=== PATIENT | male | born 1980 | race Caucasian/White ===

== ENCOUNTER 2016-10-08 09:16 | Emergency (ER) | payer SELFPAY ==
[~2016-10-08] VITALS: Ht 193 cm; Wt 85.7 kg
[~2016-10-08 09:16] MED LIST: DOXY100T OR; IBUP800T23 PO; Z.0.NO CURRENT MEDS
[2016-10-08 09:26] VITALS: BP 125/81; PULSE 65; RESP 16; TEMP 98.9; O2SAT 97
[2016-10-08] MEDS ORDERED: LIDOCAINE HCL 2% 50 ML VIAL INFIL ONE (09:45)
[2016-10-08] MEDS ORDERED: METH40TA PO (09:52)
[2016-10-08] MEDS ORDERED: BACT800T5 PO (10:15)
[2016-10-08] MEDS ORDERED: CEPH-460 PO (10:15)
--- NOTE | 2016-10-08 10:18 | PD ---
HPI Chief Complaint: Skin Problem Time Seen by Provider: 09:35 Travel History International Travel<30 days: No Contact w/Intl Traveler<30days: No Traveled to known affect area: No History of Present Illness HPI Patient is a 35 year old male who comes in complaining of a painful swelling to his left arm. He says he has noticed the swelling for the past month, but his usually been able to get to go and it's own. He says for the past 3 or 4 days the swelling has increased and not gone away. He complains of pain to the area. He denies any fever or chills. He has injected himself in that area before. He says he is currently not using any IV drugs and is taking methadone. He denies any chest pain or shortness of breath. PFSH Past Medical History Depression: Yes Diminished Hearing: No Tetanus Vaccination: > 5 Years Influenza Vaccination: No Past Surgical History Surgical History: No Previous Surgery Social History Alcohol Use: Yes ("for years") Tobacco Use: Yes (1 PPD) Substance Use: Yes (CLAIMS HAS USED EVERY TYPE OF SUBSTANCE) Allergies-Medications (Allergen,Severity, Reaction): Coded Allergies: Erythromycin (Verified Allergy, Severe, Nausea/Vomiting, 10/08/16) Azithromycin (Verified Allergy, Mild, 10/08/16) Reported Meds & Prescriptions Reported Meds & Active Scripts Active Bactrim DS (Sulfamethoxazole-Trimethoprim) 800-160 Mg Tab 1 Tab PO BID Keflex (Cephalexin) 500 Mg Cap 500 Mg PO Q6H 7 Days Reported Methadone (Methadone HCl) 40 Mg Tab 40 Mg PO DAILY Review of Systems General / Constitutional: No: Fever, Chills HENT: No: Headaches, Lightheadedness Cardiovascular: No: Chest Pain or Discomfort Respiratory: No: Shortness of Breath Gastrointestinal: No: Nausea, Vomiting Skin: Positive Lesions Neurologic: No: Weakness, Dizziness Physical Exam Narrative GENERAL: Awake and alert in no acute distress. SKIN: Warm and dry. 2 cm area of fluctuance on the left forearm, just distal to the elbow. There is surrounding erythema and induration. HEAD: Atraumatic. Normocephalic. EYES: Pupils equal and round. No scleral icterus. NECK: Trachea midline. No JVD. CARDIOVASCULAR: Regular rate and rhythm. No murmur appreciated. RESPIRATORY: No accessory muscle use. Clear to auscultation. Breath sounds equal bilaterally. MUSCULOSKELETAL: No obvious deformities. No clubbing. No cyanosis. No edema. NEUROLOGICAL: Awake and alert. No obvious cranial nerve deficits. Motor grossly within normal limits. Normal speech. Data Data Last Documented VS Vital Signs Date Time Temp Pulse Resp B/P Pulse Ox O2 Delivery O2 Flow Rate FiO2 10/08/16 09:26 98.9 65 16 125/81 97 Orders Lidocaine 2% Inj (Xylocaine 2% Inj) (10/08/16 09:45) [facility] Medical Decision Making Medical Screen Exam Complete: Yes Emergency Medical Condition: Yes Medical Record Reviewed: Yes Differential Diagnosis Abscess versus cellulitis versus folliculitis Narrative Course Patient is a 35-year-old male comes in complaining of pain and swelling to his left arm. Exam shows an area of fluctuance with surrounding erythema and induration. Patient has no systemic symptoms at this time. Abscess drained with expression of pus. Wound bandaged. Patient will be discharged with prescriptions for Keflex and Bactrim. Advised to return if he has any increased swelling, pain, fever. Advised to return to the ED as needed for any worsening symptoms. Procedures Procedure Narrative Verbal consent obtained for procedure. Abscess infiltrated with 10 ML's of 2% lidocaine. Small incision made the top of the abscess with expression of about 2 ML's of pustular material. 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 Clean bandage applied. Diagnosis Primary Impression: Abscess Patient Instructions: Abscess (ED), General Instructions Additional Instructions: Make sure to keep the wound clean and dry. Take all of your antibiotics. Return to the ED for worsening pain, swelling, fevers. You can take Tylenol or Ibuprofen for pain. Scripts Sulfamethoxazole-Trimethoprim (Bactrim DS)800-160 Mg Tab1 Tab PO BID #14 TAB Ref 0 Prov:Sherrie Payton MD 10/08/16 Cephalexin (Keflex)500 Mg [id number] Mg PO Q6H 7 Days Ref 0 Prov:Sherrie Payton MD 10/08/16 Disposition: 01 DISCHARGE HOME Condition: Stable Sherrie Payton MD Oct 08, 2016 10:18
== END 2016-10-08 10:24 | disposition home or self-care (01) ==
LOC: PHED 09:16
DX: L02.414 Cutaneous abscess of left upper limb (principal); F17.210 Nicotine dependence, cigarettes, uncomplicated; F19.10 Other psychoactive substance abuse, uncomplicated
CPT/HCPCS: 10060

== ENCOUNTER 2017-03-19 13:34 | Emergency (ER) | payer SELFPAY ==
[~2017-03-19] VITALS: Ht 193 cm; Wt 79.5 kg
[2017-03-19 13:34] VITALS: BP 137/79; PULSE 77; RESP 16; TEMP 97.5; O2SAT 98
[~2017-03-19 13:34] MED LIST changes: +BACT800T5 PO; +CEPH-460 PO; -DOXY100T OR; -IBUP800T23 PO; +METH40TA PO; -Z.0.NO CURRENT MEDS
--- NOTE | 2017-03-19 13:54 | PD ---
HPI Chief Complaint: altered mental status Time Seen by Provider: 13:38 Travel History International Travel<30 days: No Contact w/Intl Traveler<30days: No Traveled to known affect area: No History of Present Illness HPI This 36-year-old male is brought by paramedics. His mother called the paramedics because he was unresponsive. Patient has a history of drug abuse. He admits that he uses drugs today. Paramedics report that he was not breathing well and was unresponsive. He was given 0.4 of Narcan and is now fully awake. He says this was an accidental overdose. He has been trying to get into detox and went to [facility] yesterday. [facility] Past Medical History Depression: Yes Diminished Hearing: No Social History Alcohol Use: Yes ("for years") Tobacco Use: Yes (1 PPD) Substance Use: Yes (CLAIMS HAS USED EVERY TYPE OF SUBSTANCE) Allergies-Medications (Allergen,Severity, Reaction): Coded Allergies: Erythromycin (Verified Allergy, Severe, Nausea/Vomiting, 03/19/17) Azithromycin (Verified Allergy, Mild, 03/19/17) Reported Meds & Prescriptions Reported Meds & Active Scripts Active Review of Systems General / Constitutional: No: Fever, Chills Eyes: No: Diploplia, Blurred Vision HENT: No: Headaches, Vertigo Cardiovascular: No: Chest Pain or Discomfort, Palpitations, Diaphoresis Respiratory: No: Cough, Shortness of Breath Gastrointestinal: No: Vomiting Genitourinary: No: Urgency, Frequency Musculoskeletal: No: Myalgias Skin: No Rash Endocrine: No: Heat Intolerance, Cold Intolerance Hematologic/Lymphatic: No: Easy Bruising Physical Exam Narrative GENERAL: Well-developed male SKIN: Focused skin assessment warm/dry. HEAD: Atraumatic. Normocephalic. EYES: Pupils equal and round. No scleral icterus. No injection or drainage. ENT: No nasal bleeding or discharge. Mucous membranes pink and moist. NECK: Trachea midline. No JVD. CARDIOVASCULAR: Regular rate and rhythm. No murmur appreciated. RESPIRATORY: No accessory muscle use. Clear to auscultation. Breath sounds equal bilaterally. GASTROINTESTINAL: Abdomen soft, non-tender, nondistended. Hepatic and splenic margins not palpable. MUSCULOSKELETAL: No obvious deformities. No clubbing. No cyanosis. No edema. NEUROLOGICAL: Awake and alert. No obvious cranial nerve deficits. Motor grossly within normal limits. Normal speech. PSYCHIATRIC: Appropriate mood and affect; insight and judgment normal. Data Data Last Documented VS Vital Signs Date Time Temp Pulse Resp B/P Pulse Ox O2 Delivery O2 Flow Rate FiO2 03/19/17 14:30 79 16 129/75 98 03/19/17 13:34 97.5 Orders Complete Blood Count With Diff (03/19/17 13:38) Basic Metabolic Panel (Bmp) (03/19/17 13:38) Labs Laboratory Tests Test 03/19/17 14:16 White Blood Count 11.0 TH/MM3 Red Blood Count 4.11 MIL/MM3 Hemoglobin 13.1 GM/DL Hematocrit 39.0 % Mean Corpuscular Volume 94.8 FL Mean Corpuscular Hemoglobin 32.0 PG Mean Corpuscular Hemoglobin 33.7 % Concent Red Cell Distribution Width 14.3 % Platelet Count 276 TH/MM3 Mean Platelet Volume 7.5 FL Neutrophils (%) (Auto) 86.0 % Lymphocytes (%) (Auto) 4.5 % Monocytes (%) (Auto) 7.7 % Eosinophils (%) (Auto) 1.0 % Basophils (%) (Auto) 0.8 % Neutrophils # (Auto) 9.5 TH/MM3 Lymphocytes # (Auto) 0.5 TH/MM3 Monocytes # (Auto) 0.8 TH/MM3 Eosinophils # (Auto) 0.1 TH/MM3 Basophils # (Auto) 0.1 TH/MM3 CBC Comment DIFF FINAL Differential Comment Sodium Level 135 MEQ/L Potassium Level 4.4 MEQ/L Chloride Level 102 MEQ/L Carbon Dioxide Level 25.3 MEQ/L Anion Gap 8 MEQ/L Blood Urea Nitrogen 3 MG/DL Creatinine 0.96 MG/DL Estimat Glomerular Filtration 88 ML/MIN Rate Random Glucose 94 MG/DL Calcium Level 9.2 MG/DL [facility] Medical Decision Making Medical Screen Exam Complete: Yes Emergency Medical Condition: Yes Medical Record Reviewed: Yes Differential Diagnosis Differential includes overdose, PSA Narrative Course Patient has been observed and he is stable. We did call [facility] to see if he could be sent there but they do not have beds available. Patient will be released. I will prescribe some Ativan to use for withdrawal symptoms Diagnosis Primary Impression: Overdose Qualified Code: T50.901A - Overdose, accidental or unintentional, initial encounter Scripts Lorazepam (Ativan)1 Mg Tab1 Mg PO Q4H PRN (for severe anxiety or dyspnea) #10 TAB Ref 0 Prov:Art Atkins MD 03/19/17 Disposition: 01 DISCHARGE HOME Condition: Stable Art Atkins MD Mar 19, 2017 13:54
[2017-03-19 14:24] LABS: AUTOMATED NEUTROPHIL # 9.5 TH/MM3 (1.8-7.7); BASOPHIL # 0.1 TH/MM3 (0-0.2); BASOPHIL % 0.8 % (0.0-2.0); EOSINOPHIL # 0.1 TH/MM3 (0-0.4); LYMPH % 4.5 % (9.0-44.0); LYMPHOCYTE # 0.5 TH/MM3 (1.0-4.8); MEAN CELL VOLUME 94.8 FL (80.0-100.0); MEAN CORPUSCULAR HGB CONC 33.7 % (32.0-36.0); MONO % 7.7 % (0.0-8.0); PLATELET COUNT 276 TH/MM3 (150-450); RED BLOOD COUNT 4.11 MIL/MM3 (4.50-5.90); RED CELL DISTRIBUTION WIDTH 14.3 % (11.6-17.2)
[2017-03-19 14:27] LABS: HEMO FLAGS DIFF FINAL
[2017-03-19 14:30] VITALS: BP 129/75; PULSE 79; RESP 16; O2SAT 98
[2017-03-19 14:38] LABS: BICARBONATE 25.3 MEQ/L (21.0-32.0)
[2017-03-19 14:43] LABS: POTASSIUM 4.4 MEQ/L (3.5-5.1)
[2017-03-19] MEDS ORDERED: LORA-474 PO (15:34)
[2017-03-19 15:35] VITALS: BP 136/78; PULSE 70; RESP 16; O2SAT 99
== END 2017-03-19 15:52 | disposition home or self-care (01) ==
LOC: PHED 13:34
DX: T50.901A Poisoning by unspecified drugs, medicaments and biological substances, accidental (unintentional), initial encounter (principal)
CPT/HCPCS: 80048; 85025; 99283